=== PATIENT | female | born 1940 | race African-American/Black ===

== ENCOUNTER 2016-10-20 15:31 | Emergency (ER) | payer OTHER ==
[~2016-10-20] VITALS: Ht 160 cm; Wt 49.6 kg
[~2016-10-20 15:31] MED LIST: GLIP5 PO; LOTR5CAP2 PO
[2016-10-20 15:35] VITALS: BP 193/81; PULSE 93; RESP 17; TEMP 98.3; O2SAT 99
[2016-10-20] MEDS ORDERED: ASPI81CH CHEW (15:46)
[2016-10-20] MEDS ORDERED: GLIP10TA6 PO (15:46)
[2016-10-20] MEDS ORDERED: AMLO5CAP3 PO ×2 (15:46→15:48)
--- NOTE | 2016-10-20 15:48 | PD ---
HPI . Hypertension Chief Complaint: Medication Refill Request Time Seen by Provider: 15:44 Travel History International Travel<30 days: No Contact w/Intl Traveler<30days: No Traveled to known affect area: No History of Present Illness HPI This patient presents requesting a refill for her blood pressure medication. She states that she is here helping her son. She has run out of her medication. She has been out for 1 day. She denies any symptoms suggestive of a hypertensive emergency such as headache, blurred vision, mental status change , chest pain, shortness of breath. PFSH Past Medical History Hx Anticoagulant Therapy: Yes (ASPIRIN 81 MG DAILY) Diabetes: Yes Diminished Hearing: No Hypertension: Yes Tubal Ligation: Yes Social History Alcohol Use: Yes ("OCCASIONALLY") Tobacco Use: No Substance Use: No Allergies-Medications (Allergen,Severity, Reaction): Coded Allergies: No Known Allergies (Verified , 10/20/16) Reported Meds & Prescriptions Reported Meds & Active Scripts Active Reported Lotrel 5/10 (Amlodipine/Benazepril HCl) 5 - Cap 0 PO DAILY UNKNOWN DOSE Glucotrol (Glipizide) 5 Mg Tab 0 PO BID UNKNOWN DOSE Review of Systems Except as stated in HPI: all other systems reviewed are Neg Physical Exam Narrative GENERAL: Awake and alert and in no acute distress. SKIN: warm/dry. HEAD: Normocephalic. EYES: Pupils equal and round. No scleral icterus. No injection or drainage. ENT: No nasal bleeding or discharge. Mucous membranes pink and moist. NECK: Trachea midline. Full range of motion without pain.. CARDIOVASCULAR: Regular rate and rhythm. Heart sounds are normal. RESPIRATORY: No accessory muscle use. Clear to auscultation. Breath sounds equal bilaterally. MUSCULOSKELETAL: No obvious deformities. NEUROLOGICAL: Awake and alert. No obvious cranial nerve deficits. Motor grossly within normal limits. Normal speech. PSYCHIATRIC: Appropriate mood and affect; insight and judgment normal. Data Data Last Documented VS Vital Signs Date Time Temp Pulse Resp B/P (MAP) Pulse Ox O2 Delivery O2 Flow Rate FiO2 10/20/16 15:35 98.3 93 17 193/81 (118) 99 MDM Medical Decision Making Medical Screen Exam Complete: Yes Emergency Medical Condition: Yes Differential Diagnosis My differential diagnosis of high blood pressure includes but is not limited to "white coat syndrome," anxiety, essential hypertension, hypertensive emergency. Narrative Course This patient presents requesting a refill on her antihypertensive. She is asymptomatic. Her medication will be refilled. Diagnosis Primary Impression: Hypertension Qualified Codes: I10 - Essential (primary) hypertension Med/Other Pt SpecificInfo: Prescription(s) given Scripts Amlodipine-Benazepril (Amlodipine-Benazepril) 5-20 Mg Cap 1 CAP PO DAILY for Blood Pressure Management, #30 CAP 0 Refills Prov: Naima De Jesus MD 10/20/16 Disposition: 01 DISCHARGE HOME Condition: Stable Naima De Jesus MD Oct 20, 2016 15:48
== END 2016-10-20 16:00 | disposition home or self-care (01) ==
LOC: PHEFT 15:31
DX: I10 Essential (primary) hypertension (principal); Z79.82 Long term (current) use of aspirin
CPT/HCPCS: 99281

== ENCOUNTER 2016-11-15 13:34 | Emergency (ER) | payer OTHER ==
[~2016-11-15] VITALS: Ht 160 cm; Wt 49.0 kg
[~2016-11-15 13:34] MED LIST changes: +AMLO5CAP3 PO; +ASPI81CH CHEW; +GLIP10TA6 PO; -GLIP5 PO; -LOTR5CAP2 PO
[2016-11-15 13:41] VITALS: BP 163/81; PULSE 94; RESP 16; TEMP 98.2; O2SAT 100
--- NOTE | 2016-11-15 14:01 | PD ---
HPI Chief Complaint: Medication Refill Request Time Seen by Provider: 14:09 Travel History International Travel<30 days: No Contact w/Intl Traveler<30days: No Traveled to known affect area: No History of Present Illness HPI 76y/f presents to the emergency department for refill of her blood pressure medication. She came in 1 month ago for the same issue and was given a script fir 30 days. She denies dizziness, visual changes, fevers, chills, chest pain, shortness of breath, back pain, flank pain. She says that she does not have a primary primary care physician. She has no other complaints or questions today. PFSH Past Medical History Hx Anticoagulant Therapy: Yes (ASPIRIN 81 MG DAILY) Diabetes: Yes Patient Takes Glucophage: No Diminished Hearing: No Hypertension: Yes Tetanus Vaccination: > 5 Years Influenza Vaccination: No ?: Not Menopausal: Yes Tubal Ligation: Yes Social History Alcohol Use: Yes (Occ.) Tobacco Use: No Substance Use: No Allergies-Medications (Allergen,Severity, Reaction): Coded Allergies: No Known Allergies (Verified , 11/15/16) Reported Meds & Prescriptions Reported Meds & Active Scripts Active Amlodipine-Benazepril 5-20 Mg Cap 1 Cap PO DAILY Amlodipine-Benazepril 5-20 Mg Cap 1 Cap PO DAILY Reported Aspirin 81 Mg Chew 81 Mg CHEW DAILY Glipizide 10 Mg Tab 10 Mg PO BIDAC Take 30 minutes before a meal Physical Exam Narrative GENERAL: Well-developed well-nourished SKIN: Focused skin assessment warm/dry. HEAD: Atraumatic. Normocephalic. EYES: Pupils equal and round. No scleral icterus. No injection or drainage. CARDIOVASCULAR: Regular rate and rhythm. No murmur appreciated. RESPIRATORY: No accessory muscle use. Clear to auscultation. Breath sounds equal bilaterally. MUSCULOSKELETAL: No obvious deformities. No clubbing. No cyanosis. No edema. NEUROLOGICAL: Awake and alert. No obvious cranial nerve deficits. Motor grossly within normal limits. Normal speech. PSYCHIATRIC: Appropriate mood and affect; insight and judgment normal. Data Data Last Documented VS Vital Signs Date Time Temp Pulse Resp B/P (MAP) Pulse Ox O2 Delivery O2 Flow Rate FiO2 11/15/16 13:41 98.2 94 16 163/81 (108) 100 MDM Medical Decision Making Medical Screen Exam Complete: Yes Emergency Medical Condition: Yes Differential Diagnosis Essential hypertension versus malignant hypertension versus renovascular hypertension Narrative Course 76-year-old female pleasant persisted emergency department for refill of her blood pressure medication. She denies dizziness, visual changes, fevers, chills, chest pain, shortness of breath, back pain, flank pain. She says that she does not have a primary primary care physician. She has no other complaints or questions today. Explained to her in depth why she is a primary care physician. I explained that her blood pressure and diabetes may calls complications such as kidney failure, blindness, nonhealing wounds. Also, being in the hospital exposes her to infections. I recommend she follow up with [facility] or a primary care physician soon. Diagnosis Primary Impression: Hypertension Qualified Codes: I10 - Essential (primary) hypertension Referrals: [facility] Additional Instructions: You should find a primary care physician to monitor your diabetes and high blood pressure. Avoid complications of these two diseases by following up regularly with a primary care physician. Take medication as prescribed. Scripts Amlodipine-Benazepril (Amlodipine-Benazepril) 5-20 Mg Cap 1 CAP PO DAILY for Blood Pressure Management, #30 CAP 0 Refills Prov: Kaila cMcarthy 11/15/16 Disposition: 01 DISCHARGE HOME Condition: Stable Kaila Mccatrhy Nov 15, 2016 14:01
[2016-11-15] MEDS ORDERED: AMLO5CAP3 PO (14:06)
== END 2016-11-15 14:23 | disposition home or self-care (01) ==
LOC: PHEFT 13:34
DX: Z76.0 Encounter for issue of repeat prescription (principal); E11.9 Type 2 diabetes mellitus without complications; I10 Essential (primary) hypertension; Z79.82 Long term (current) use of aspirin
CPT/HCPCS: 99281